=== PATIENT | male | born 1970 | race Caucasian/White ===

== ENCOUNTER 2017-11-30 13:39 | Emergency (ER) | payer BC ==
--- NOTE | 2017-11-30 13:44 | PDOC ---
History of Present Illness - General History Source: Patient Exam Limitations: No Limitations - History of Present Illness Initial Comments: 11/30/17 14:49 Chief Complaint: Left shoulder pain History of Present Illness: The patient states he was lifting light weights 4 days ago when he felt a pop in his shoulder. He locates his pain to his left scapula/upper back. Today the patient went to physical therapy to help relieve his pain, but states that the pain became worse after his session, stating he began to feel numbness down his left arm. He denies any alleviation of his pain with NSAIDs, resting, or icing and states his pain is worse with movement. Review of Systems: He denies any previous injury to his left extremity/neck/back. He denies any other focal deficits. Denies any neck pain or back pain. He denies any recent illness, fevers, or chills. He denies any nausea, vomiting, diarrhea, cough, SOB , CP or urinary symptoms. Past Medical History: Multiple sclerosis. The patient is not on any medications for his condition. Social History: The patient denies any drug or tobacco use. He reports social alcohol use. The patient is active and works out using light weights/ plays tennis. <Ana Gordillo - Last Filed: 11/30/17 14:57> - History of Present Illness Initial Comments: 11/30/17 15:42 Exam: Alert and oriented well-developed well-nourished no acute distress cooperative Afebrile vital signs normal Right shoulder: Without deformity, swelling, effusion, or limited range of motion. There is trigger point tenderness upper back, along the medial border of the scapula. Pulses are full. No distal sensory or motor deficits. Full range of motion of the arm and shoulder as noted above X-ray: Negative Impression: Musculoskeletal pain, trigger point syndrome Plan: Arm placed in a sling to reduce traction on the nerve. Ice. Anti- inflammatory, muscle relaxant, and breakthrough pain medication. Orthopedic referral to consider trigger point injection if symptoms do not improve. Fully ambulatory, pain improved upon discharge with his , to follow-up as recommended. Because of the temporal relationship of the pain during exercise, in the absence of other symptoms, it is unlikely that the pain is due to a flareup of MS. However the patient is aware reduces always a possibility and neurological follow-up may be necessary as well if the symptoms persist <D'Ambrosia,Anjel J - Last Filed: 11/30/17 15:46> - General Chief Complaint: Pain Stated Complaint: LEFT UPPER BACK, LEFT SHOULDER PAIN Time Seen by Provider: 11/30/17 13:40 Past History <Ana Gordillo - Last Filed: 11/30/17 14:57> <Anjel Chatman - Last Filed: 11/30/17 15:46> - Past Medical History Allergies/Adverse Reactions: Allergies Allergy/AdvReac Type Severity Reaction Status Date / Time No Known Allergies Allergy Verified 11/30/17 13:40 Home Medications: Ambulatory Orders Hydroxyzine Pamoate [Vistaril -] 25 mg PO TID #20 capsule 11/30/17 Ketorolac Tromethamine [Toradol] 10 mg PO Q6H #20 tablet 11/30/17 Oxycodone HCl/Acetaminophen [Percocet 10-325 mg Tablet] 1 tab PO QID PRN #15 tablet MDD 4 11/30/17 Review of Systems - Review of Systems Able to Perform ROS?: Yes All Other Systems: Reviewed and Negative <Ana Gordillo - Last Filed: 11/30/17 14:57> *Physical Exam - Vital Signs Last Vital Signs Temp Pulse Resp BP Pulse Ox 97.3 F L 82 18 140/98 98 11/30/17 13:40 11/30/17 13:40 11/30/17 13:40 11/30/17 13:40 11/30/17 13:40 <Ana Gordillo - Last Filed: 11/30/17 14:57> ED Treatment Course - RADIOLOGY Radiograph Interpretation: 11/30/17 14:58 Left shoulder X-ray as reviewed by Dr. Palomares reports no fracture, subluxation , or bone destruction. - Medications Given in the ED: ED Medications Discontinued Medications Generic Name Dose Route Start Last Admin Trade Name Freq PRN Reason Stop Dose Admin Hydroxyzine Pamoate 50 mg 11/30/17 14:25 11/30/17 14:36 Vistaril - PO 11/30/17 14:26 50 mg ONCE ONE Administration Ketorolac Tromethamine 60 mg 11/30/17 14:25 11/30/17 14:36 Toradol Injection - IM 11/30/17 14:26 60 mg ONCE ONE Administration <DuyAna - Last Filed: 11/30/17 14:57> *DC/Admit/Observation/Transfer - Attestations Scribe Attestion: 11/30/17 14:57 Documentation prepared by Ana Gordillo, acting as medical case worker for Anjel Srivastava MD. 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 - Discharge Dispostion Disposition: HOME Condition at time of disposition: Improved - Prescriptions Prescriptions: Hydroxyzine Pamoate [Vistaril -] 25 mg PO TID #20 capsule Ketorolac Tromethamine [Toradol] 10 mg PO Q6H #20 tablet Oxycodone HCl/Acetaminophen [Percocet 10-325 mg Tablet] 1 tab PO QID PRN #15 tablet MDD 4 PRN Reason: Severe Pain - Referrals Referrals: Domenic Flores MD [Staff Physician] - 3 days - Patient Instructions Printed Discharge Instructions: DI for Musculoskeletal Pain Additional Instructions: Most likely there is a pinched nerve and a "trigger point" syndrome." Use is medication as directed. Use the sling to prevent traction on the nerve. Rest and gentle ice massage. Medication Irritating to the stomach. Keep a small amount of fluid in your stomach at all times, and take Mylanta or Maalox if there is stomach irritation THAT See orthopedist for further care. A trigger point injection may be the next step in her present therapy isn't effective. - Post Discharge Activity Forms/Work/School Notes: Back to Work
[2017-11-30 13:49] VITALS: BP 140/98; PULSE 82; TEMP 97.3; BMI 23.3
[2017-11-30] MEDS ORDERED: hydrOXYzine PAMOATE 50 MG CAPSULE (FP) PO ONE (14:25)
[2017-11-30] MEDS ORDERED: KETOROLAC TROMETHAMINE 60 MG/2 ML VIAL IM ONE (14:25)
[2017-11-30] MEDS ORDERED: KETOROLAC TROMETHAMINE 60 MG/2 ML VIAL ONE (14:27)
[2017-11-30] MEDS ORDERED: hydrOXYzine PAMOATE 25 MG CAPSULE (FP) PO ONE (14:27)
== END 2017-11-30 14:50 | disposition home or self-care (01) ==
LOC: FER 13:39
PROC: 3E0233Z Introduction of Anti-inflammatory into Muscle, Percutaneous Approach (ICD-10-PCS; principal; 2017-11-30)
DX: M79.1 Myalgia (principal); G35 Multiple sclerosis
CPT/HCPCS: 73030-TC-LT; 99283-25

== ENCOUNTER 2018-12-16 08:10 | Emergency (ER) | payer BC ==
[2018-12-16 08:16] VITALS: BP 118/88; PULSE 68; TEMP 97.6; BMI 23.7
[2018-12-16] MEDS ORDERED: DIPHTH,PERTUSS(ACELL),TET 0.5 ML DISP.SYRIN IM ONE ×2 (08:17→08:22)
--- NOTE | 2018-12-16 08:23 | PDOC ---
History of Present Illness - General Chief Complaint: Laceration Stated Complaint: LACERATION TO LEFT INDEX FINGER Time Seen by Provider: 12/16/18 08:17 History Source: Patient Exam Limitations: No Limitations - History of Present Illness Initial Comments: 12/16/18 08:18 48 year old M c/ no pmh, right hand dominant, last tetanus unknown p/w left index finger distal digit skin tear. Was using a potato sorter when he had a very small distal avulsion of distal left finger digit. Denies taking medications. No numbness, weakness, tingling. Continued to bleed so came to the ER. Denies lightheadedness. Past History - Past Medical History Allergies/Adverse Reactions: Allergies Allergy/AdvReac Type Severity Reaction Status Date / Time No Known Allergies Allergy Verified 12/16/18 08:11 Home Medications: Ambulatory Orders NK [No Known Home Medication] 12/16/18 COPD: No Other medical history: pt denies - Suicide/Smoking/Psychosocial Hx Smoking History: Never smoked Hx Alcohol Use: No Drug/Substance Use Hx: No Review of Systems - Review of Systems Able to Perform ROS?: Yes Comments:: 12/16/18 08:19 GENERAL/CONSTITUTIONAL: [No fever or chills. No weakness. No weight change.] HEAD, EYES, EARS, NOSE AND THROAT: [No change in vision. No ear pain or discharge. No sore throat.] CARDIOVASCULAR: [No chest pain or shortness of breath.] RESPIRATORY: [No cough, wheezing, or hemoptysis.] GASTROINTESTINAL: [No nausea, vomiting, diarrhea or constipation. No rectal bleeding.] GENITOURINARY: [No dysuria, frequency, or change in urination.] MUSCULOSKELETAL: [No joint or muscle swelling or pain. No neck or back pain.] SKIN AND BREASTS: left finger index skin avulsion distal digit. NEUROLOGIC: [No headache, vertigo, loss of consciousness, or loss of sensation.] PSYCHIATRIC: [No depression or anxiety.] ENDOCRINE: [No increased thirst. No abnormal weight change.] HEMATOLOGIC/LYMPHATIC: [No anemia, easy bleeding, or history of blood clots.] ALLERGIC/IMMUNOLOGIC: [No hives or skin allergy. No latex allergy.] *Physical Exam - Vital Signs Last Vital Signs Temp Pulse Resp BP Pulse Ox 97.6 F 68 18 118/88 100 12/16/18 08:11 12/16/18 08:11 12/16/18 08:11 12/16/18 08:11 12/16/18 08:11 - Physical Exam Comments: 12/16/18 08:21 GENERAL: Awake, alert, and fully oriented, in no acute distress HEAD: No signs of trauma EYES: EOMI, sclera anicteric, conjunctiva clear ENT: Auricles normal inspection, hearing grossly normal, nares patent NECK: Normal ROM, supple EXTREMITIES: Normal range of motion, no edema. No clubbing or cyanosis. No cords, erythema, or tenderness LUE: 2+ radial pulse. Median/Radian/Ulnar strength and sensation intact throughout. Able to extend and flex all digits with full strength. Small skin avulsion ~1 cm x 0.5 cm to distal left 2nd digit. Mild oozing of blood. No evidence of tendon injury. NEUROLOGICAL: Cranial nerves II through XII grossly intact. Normal speech, normal gait SKIN: Warm, Dry, normal turgor, no rashes or lesions noted. Moderate Sedation - Procedure Monitoring Vital Signs: Procedure Monitoring Vital Signs Temperature 97.6 F 12/16/18 08:11 Pulse Rate 68 12/16/18 08:11 Respiratory Rate 18 12/16/18 08:11 Blood Pressure 118/88 12/16/18 08:11 O2 Sat by Pulse Oximetry (%) 100 12/16/18 08:11 Medical Decision Making - Medical Decision Making 12/16/18 08:23 Vital Signs Temp Pulse Resp BP Pulse Ox 97.6 F 68 18 118/88 100 12/16/18 08:11 12/16/18 08:11 12/16/18 08:11 12/16/18 08:11 12/16/18 08:11 Impression: Minor skin avulsion. Wound cleansed and irrigated with normal saline and betadine solution. Boostrix ordered. Will place surgicel and gauze. Wound precautions. Gentle soap and water starting tomorrow. Return if significant bleeding. I discussed the physical exam findings, ancillary test results and final diagnoses with the patient. I answered all of the patient's questions. The patient was satisfied with the care received and felt comfortable with the discharge plan and treatment plan. The patient will call their primary care physician within 24 hours to arrange follow-up and will return to the Emergency Department with any new, persistant or worsening symptoms. *DC/Admit/Observation/Transfer Diagnosis at time of Disposition: Skin avulsion - Discharge Dispostion Disposition: HOME Condition at time of disposition: Stable Decision to Admit order: No - Referrals - Patient Instructions Printed Discharge Instructions: DI for Avulsion Laceration (Not Requiring Sutures) Additional Instructions: You have a surgicel gauze in place. You can take that off tomorrow. Start showering tomorrow. You may apply a thin layer of bacitracin every 12 hours for the next 2 days. Take 650 mg tylenol every 4 hours as needed for pain. Your wound may potentially scar. To minimize scarring, minimize sun exposure. - Post Discharge Activity
== END 2018-12-16 08:34 | disposition home or self-care (01) ==
LOC: FER 08:10
PROC: 0HQGXZZ Repair Left Hand Skin, External Approach (ICD-10-PCS; principal; 2018-12-16)
PROC: 3E0234Z Introduction of Serum, Toxoid and Vaccine into Muscle, Percutaneous Approach (ICD-10-PCS; 2018-12-16)
DX: S61.211A Laceration without foreign body of left index finger without damage to nail, initial encounter (principal); W45.8XXA Other foreign body or object entering through skin, initial encounter; Y93.G1 Activity, food preparation and clean up; Y92.9 Unspecified place or not applicable
CPT/HCPCS: 90715; 99282-25